=== PATIENT | male | born 1945 | race Hispanic/Latino ===

== ENCOUNTER 2016-10-31 07:39 | Day surgery (SDC) | payer MEDICARE ==
[2016-10-24 08:17] VITALS: BMI 30.8
[2016-10-31] MEDS ORDERED: Propofol 10 mg/ml Inj (20 ML) ONE (10:23)
[2016-10-31] MEDS ORDERED: Lactated Ringer's 1,000 ML IV SCH (10:52)
[2016-10-31 11:07] VITALS: RESP 16
[2016-10-31 12:27] VITALS: BP 129/73; PULSE 62; TEMP 97.9; O2SAT 100
== END 2016-10-31 12:24 | disposition home or self-care (01) ==
LOC: ENDO 07:39
PROVIDERS: ATTEND Specialist
DX: Z12.11 Encounter for screening for malignant neoplasm of colon (principal); D12.2 Benign neoplasm of ascending colon; D12.3 Benign neoplasm of transverse colon; K57.30 Diverticulosis of large intestine without perforation or abscess without bleeding; K64.8 Other hemorrhoids
CPT/HCPCS: 45380; 45385; 88305; J2704; J7040; J7120

== ENCOUNTER 2018-11-28 20:48 | Inpatient (IN) | payer MEDICARE ==
[2018-11-28 20:53] VITALS: BMI 32.8
--- NOTE | 2018-11-28 21:14 | ED PDOC ---
Arrival/HPI - General Chief Complaint: Weakness/Neurological Deficit Time Seen by Provider: 11/28/18 20:53 Historian: Patient - History of Present Illness Narrative History of Present Illness (Text): 11/28/18 21:11 A 73 year old male, whose past medical history includes hypertension, hypothyroidism, hyperlipidemia, presents to the emergency department for evaluation of transient tremors which patient states he had earlier this evening after leaving his house while at a venue to see a band. Not associated with any headache, weakness, chest pain, or shortness of breath. Patient denies any drug/alcohol use. No history of chronic alcohol use. He denies fevers, chills, dizziness, dyspnea on exertion, cough, abdominal pain, nausea, vomiting, diarrhea, back pain, neck pain, urinary/bowel changes, or any other complaint. Time/Duration: Prior to Arrival Symptom Onset: Sudden Symptom Course: Unchanged Activities at Onset: Rest, Light Context: Home Past Medical History - Provider Review Nursing Documentation Reviewed: Yes - Tetanus Immunization Tetanus Immunization: Unknown - Cardiac Hx Pacemaker: No - Endocrine/Metabolic Hx Hypothyroidism: Yes - Hematological/Oncological Hx Blood Transfusions: No Hx Blood Transfusion Reaction: No - Musculoskeletal/Rheumatological Hx Musculoskeletal Disorders: Yes - Genitourinary/Gynecological Other/Comment: Enlarged Prostate - Psychiatric Hx Emotional Abuse: No Hx Physical Abuse: No Hx Substance Use: No - Past Surgical History Past Surgical History: No Previous - Anesthesia Hx Anesthesia Reactions: Yes (SEVERE DRY MOUTH- DIFF VOIDING AT HOME) Hx Malignant Hyperthermia: No - Suicidal Assessment Feels Threatened In Home Enviroment: No Family/Social History - Physician Review Nursing Documentation Reviewed: Yes Family/Social History: No Known Family HX Smoking Status: Current Some Days Smoker Hx Alcohol Use: Yes (SOCIAL) Hx Substance Use: No Hx Substance Use Treatment: No Allergies/Home Meds Allergies/Adverse Reactions: Allergies No Known Allergies Allergy (Verified 11/28/18 20:52) Home Medications: Home Meds Medication Instructions Recorded Confirmed Simvastatin 40 mg PO QPM 12/16/13 11/28/18 Saw [facility] Xt/Phytosterol #2 160 mg PO QAM 03/15/14 11/28/18 [Prostate Sr Softgel] Cholecalciferol [Vitamin D] 2,000 iu PO QAM 10/24/16 11/28/18 Levothyroxine Sodium [Unithroid] 1 mcg PO QAM 10/24/16 11/28/18 Lisinopril [Zestril] 1 tab PO DAILY 10/31/16 11/28/18 Review of Systems - Physician Review All systems were reviewed & negative as marked: Yes - Review of Systems Constitutional: absent: Fevers Respiratory: absent: SOB, Cough Cardiovascular: absent: Chest Pain, WARNER Gastrointestinal: absent: Abdominal Pain, Stool Changes, Diarrhea, Nausea, Vomiting Genitourinary Male: absent: Urinary Output Changes Musculoskeletal: absent: Back Pain, Neck Pain Neurological: Other (Transient tremors). absent: Headache, Dizziness Physical Exam Vital Signs Reviewed: Yes Temperature: Febrile Blood Pressure: Normal Pulse: Tachycardic Respiratory Rate: Normal Appearance: Positive for: Well-Appearing, Non-Toxic, Comfortable Pain Distress: None Mental Status: Positive for: Alert and Oriented X 3 - Systems Exam Head: Present: Atraumatic, Normocephalic Pupils: Present: PERRL Extroacular Muscles: Present: EOMI Conjunctiva: Present: Normal Ears: Present: NORMAL TM Mouth: Present: Moist Mucous Membranes Pharnyx: Present: Normal Neck: Present: Normal Range of Motion. No: Meningeal Signs Respiratory/Chest: Present: Clear to Auscultation, Good Air Exchange. No: Respiratory Distress, Accessory Muscle Use Cardiovascular: Present: Regular Rate and Rhythm, Normal S1, S2. No: Murmurs Abdomen: No: Tenderness, Distention, Peritoneal Signs Back: Present: Normal Inspection Upper Extremity: Present: Normal Inspection. No: Cyanosis, Edema Lower Extremity: Present: Normal Inspection. No: Edema Neurological: Present: GCS=15, CN II-XII Intact, Speech Normal, Motor Func Grossly Intact, Normal Sensory Function Skin: Present: Warm, Dry, Normal Color, Other (small scab to left lateral buttock area/no erythema). No: Rashes Psychiatric: Present: Alert, Oriented x 3, Normal Insight, Normal Concentration Medical Decision Making ED Course and Treatment: 11/28/18 21:14 Impression: A 73 year old male presents to the emergency department with a complaint of transient tremors this evening. Plan: -- Head CT -- EKG -- Labs -- Reassess and disposition Prior Visits: Notes and results from previous visits were reviewed. Progress Notes: 11/28/18 22:18: Code sepsis called. 11/28/18 22:58: Chest X-ray read and interpreted by me shows no acute process. 11/28/18 22:59: EKG read and interpreted by me shows sinus tachycardia at [address]- T changes. 11/28/18 23:52: Case discussed in detail with Dr. Schwarz who accepts patient to her service. EXAM: CT Head Without IV contrast. IMPRESSION: 1. No acute intracranial abnormality. 2. Mild age-appropriate cerebral and cerebellar atrophy. 3. Mild chronic microvascular disease. 4. Mucous retention cysts or polyps seen in the maxillary sinuses bilaterally. Electronically signed on November 28, 2018 11:52:48 PM EDT by: Myke Villagran M.D., M.B.A., Certified By [employer] Trained MRI and CT Specialist - Lab Interpretations I have reviewed the lab results: Yes - RAD Interpretation Radiology Orders: 11/28/18 21:06 HEAD W/O CONTRAST [CT] Stat - EKG Interpretation Interpreted by ED Physician: Yes Type: 12 lead EKG - Scribe Statement The provider has reviewed the documentation as recorded by the Scribe Priscilla Granda Provider Scribe Attestation: All medical record entries made by the Scribe were at my direction and personally dictated by me. I have reviewed the chart and agree that the record accurately reflects my personal performance of the history, physical exam, medical decision making, and the department course for this patient. I have also personally directed, reviewed, and agree with the discharge instructions and disposition. Disposition/Present on Arrival - Present on Arrival Any Indicators Present on Arrival: No History of DVT/PE: No History of Uncontrolled Diabetes: No Urinary Catheter: No History of Decub. Ulcer: No History Surgical Site Infection Following: None - Disposition Have Diagnosis and Disposition been Completed?: Yes Diagnosis: Sepsis Disposition: HOSPITALIZED Disposition Time: 01:05 Patient Problems: Current Active Problems Problem Status Onset Sepsis Acute Condition: STABLE
[2018-11-28 21:29] LABS: HEMOGLOBIN 13.1 g/dL (14.0-18.0); MEAN CORPUSCULAR HEMOGLOBIN 30.8 pg (25.0-35.0); MEAN CORPUSCULAR HGB CONC 33.4 g/dl (31.0-37.0); MEAN PLATELET VOLUME 10.3 fl (7.0-11.0); RBC 4.26 10^6/uL (3.5-6.1); RED CELL DISTRIBUTION WIDTH 13.4 % (11.5-14.5); WHITE BLOOD COUNT 2.8 10^3/uL (4.5-11.0)
[2018-11-28 21:40] LABS: ALB/GLOB RATIO 1.2 (1.1-1.8); ALT/SGPT 18 U/L (7-56); AST/SGOT 21 U/L (17-59); BLOOD UREA NITROGEN 23 mg/dL (7-21); CALCIUM 9.3 mg/dL (8.4-10.5); GFR NON-AFRICAN AMERICAN > 60
[2018-11-28 21:50] LABS: TROPONIN I < 0.01 ng/mL
[2018-11-28 22:00] LABS: FREE T4 1.85 ng/dL (0.78-2.19)
[2018-11-28 22:13] LABS: VENOUS BLOOD GAS BASE EXCESS 1.5 mmol/L (0.0-2.0); VENOUS BLOOD GAS PO2 26 mm/Hg (30-55)
[2018-11-28 22:57] LABS: URINE BILIRUBIN NEGATIVE (NEGATIVE); URINE BLOOD LARGE (NEGATIVE); URINE GLUCOSE (UA) NEGATIVE (NEGATIVE); URINE LEUKOCYTE ESTERASE MODERATE Leu/uL (NEGATIVE); URINE PROTEIN 30 mg/dL (<30 mg/dL); URINE UROBILINOGEN 0.2 E.U./dL (<1 E.U./dL)
[2018-11-28 22:59] LABS: URINE APPEARANCE SLIGHT-CLOUDY (CLEAR); URINE COLOR YELLOW (YELLOW)
[2018-11-28 23:01] LABS: URINE RBC 15 - 20 /hpf (0-2)
[2018-11-28] MEDS ORDERED: Piperacillin/Tazobact 3.375 gm 100 ML IV STA (23:03)
[2018-11-28] MEDS ORDERED: Vancomycin 1gm in NS 250ml 1 GM/250 ML BAG IVPB STA (23:15)
[2018-11-29 00:05] LABS: INR 1.07; PARTIAL THROMBOPLASTIN TIME 28.2 Seconds (26.9-38.3); PROTHROMBIN TIME 11.9 SECONDS (9.4-12.5)
[2018-11-29] MEDS ORDERED: Sodium Chloride 0.9% 1,000 ML IV STA (01:07)
[2018-11-29 01:35] LABS: VENOUS BLOOD GAS BASE EXCESS -2.1 mmol/L (0.0-2.0); VENOUS BLOOD GAS PO2 65 mm/Hg (30-55); VENOUS BLOOD PH 7.46 (7.32-7.43)
--- NOTE | 2018-11-29 02:22 | PCM.SEPTIC ---
<Efrain Conteh - Last Filed: 11/29/18 02:21> Sepsis Progress Note - Reassessment Type Date of Evaluation: 11/29/18 Time of Evaluation: 01:30 Reassessment Type: Non-invasive reassessment - Non Invasive Reassessment Were the most recent vital sign reviewed: Yes Vital Sign (Latest): Temp Pulse Resp BP Pulse Ox 98.4 F 98 H 13 114/68 98 11/29/18 01:51 11/29/18 01:51 11/29/18 01:51 11/29/18 01:51 11/29/18 01:51 Cardiovascular: Yes: Tachycardia Respiratory: Yes: Normal Breath Sounds. No: Accessory Muscle Use, Crackles, Rales, Rhonchi, Respiratory Distress Capillary Refill: Normal (Less than 2 sec) Pulses: Normal Radial, Normal Dorsalis Pedis, Normal Posterior Tibialis Skin: Warm, Dry <Steve Alaniz - Last Filed: 11/29/18 04:35> Sepsis Progress Note - Non Invasive Reassessment Vital Sign (Latest): Temp Pulse Resp BP Pulse Ox 98.4 F 98 H 13 114/68 98 11/29/18 03:22 11/29/18 03:22 11/29/18 03:22 11/29/18 03:22 11/29/18 03:22 Attending/Attestation - Attestation I have personally seen and examined this patient.: Yes I have fully participated in the care of the patient.: Yes I have reviewed all pertinent clinical information, including history, physical exam and plan: Yes Notes (Text): 11/29/18 04:34 Patient was seen when he came to [facility]. Ambulating. Not in acute distress. Agree with biomedical photographer's note.
[2018-11-29] MEDS: Levothyroxine 75 MCG TAB PO SCH (09:39)
[2018-11-29] MEDS: Cholecalciferol 1,000 INTLU TAB PO SCH (09:40)
[2018-11-29] MEDS: PROSTAT PO SCH (09:41)
--- NOTE | 2018-11-29 11:28 | RAD ---
Date of service: 11/28/2018 HISTORY: Sepsis Patient COMPARISON: No prior. TECHNIQUE: 1 view obtained. FINDINGS: LUNGS: No active pulmonary disease. PLEURA: No significant pleural effusion identified, no pneumothorax apparent. CARDIOVASCULAR: Aortic atherosclerotic calcifications. Cardiomediastinal silhouette enlarged. OSSEOUS STRUCTURES: Spinal degenerative changes. VISUALIZED UPPER ABDOMEN: Normal. OTHER FINDINGS: None. IMPRESSION: No active disease.
--- NOTE | 2018-11-29 11:52 | CARD ---
APPROVED REPORT Date of service: 11/28/2018 EKG Measurement Heart [id number] <Conclusion> Poor data quality, interpretation may be adversely affected Sinus tachycardia Otherwise normal ECG
--- NOTE | 2018-11-29 12:40 | CT ---
Date of service: 11/28/2018 PROCEDURE: CT HEAD WITHOUT CONTRAST. HISTORY: tremors COMPARISON: None available. TECHNIQUE: Axial computed tomography images were obtained through the head/brain without intravenous contrast. Radiation dose: Total exam DLP = 1062.97 mGy-cm. This CT exam was performed using one or more of the following dose reduction techniques: Automated exposure control, adjustment of the mA and/or kV according to patient size, and/or use of iterative reconstruction technique. FINDINGS: HEMORRHAGE: No intracranial hemorrhage. BRAIN: No mass effect or edema. Atrophy. Chronic microvascular ischemic changes. VENTRICLES: Unremarkable. No hydrocephalus. CALVARIUM: Unremarkable. PARANASAL SINUSES: Large polyp or retention cyst in the right maxillary sinus. MASTOID AIR CELLS: Unremarkable as visualized. No inflammatory changes. OTHER FINDINGS: None. IMPRESSION: No acute intracranial pathology. Age-related changes.
[2018-11-29] MEDS ORDERED: cefTRIAXone 1 gm 1 GM/100 ML BAG IVPB SCH (14:00)
[2018-11-29] MEDS: Sodium Chloride 0.9% 1,000 ML IV SCH (17:33)
[2018-11-29] MEDS: Cefepime 1gm in NS 100ml 1 GM/100 ML BAG IVPB SCH (22:02)
[2018-11-29] MEDS ORDERED: DiphenhydrAMINE 50 mg/ml Inj IVP STA (22:42)
--- NOTE | 2018-11-30 02:46 | CP.PCM.CON ---
History of Present Illness - History of Present Illness History of Present Illness: Infectious Disease Consultation: November 29, 2018 73 yo male with PMHx of hypertension, hypothyroidism, hyperlipidemia, presents to the emergency department for evaluation of transient tremors which patient states he had earlier this evening after leaving his house while at a venue to see a band. Found to have fevers up to 104.0 F on this hospitalization. The patient with leukopenia. Procalcitonin of 77. Blood cultures with gram negative rods. The patient is ambulatory. Cannot rule out UTI given urin alysis. Urine cultures are pending. PMHx: Hypertension, Hypothyroidism, hyperlipidemia PSHx: None given Allergies: NKDA Social Hx: No illicit drug use Social EtOH Current smoker Active Medications Acetaminophen (Tylenol 325mg Tab) 650 mg PO Q4H PRN PRN Reason: Fever >100.4 F Last Admin: 11/29/18 21:00 Dose: 650 mg Aspirin (Aspirin Chewable) 81 mg PO DAILY [facility] Last Admin: 11/29/18 13:17 Dose: 81 mg Atorvastatin Calcium (Lipitor) 20 mg PO DIN [facility] Last Admin: 11/29/18 17:33 Dose: 20 mg Cholecalciferol (Vitamin D) 2,000 intlu PO DAILY [facility] Last Admin: 11/29/18 09:40 Dose: 2,000 intlu Home Med (Home Med) 1 unit PO DAILY [facility] Last Admin: 11/29/18 09:41 Dose: Not Given Sodium Chloride (Sodium Chloride 0.9%) 1,000 mls @ 100 mls/hr IV .Q10H [facility] Last Admin: 11/29/18 17:33 Dose: 100 mls/hr Cefepime HCl (Maxipime 1gm) 1 gm in 100 mls @ 100 mls/hr IVPB Q12 [facility]; Protocol Last Admin: 11/29/18 22:02 Dose: 100 mls/hr Levothyroxine Sodium (Synthroid) 75 mcg PO 0600 [facility] Last Admin: 11/29/18 09:39 Dose: 75 mcg Lisinopril (Zestril) 5 mg PO DAILY [facility] Last Admin: 11/29/18 09:40 Dose: 5 mg Family Hx: none given ROS: Fevers, chills, tremor, tachycardia No chest pain, abdominal pain, melena, hematuria, hematemesis, hematochezia, depression, anxiety, loss of consciousness, vision loss, hearing loss. Past Patient History - Tetanus Immunizations Tetanus Immunization: Unknown - Past Social History Smoking Status: Current Some Days Smoker - CARDIAC Hx Pacemaker: No - PULMONARY Hx Respiratory Disorders: No - NEUROLOGICAL Hx Neurological Disorder: No - HEENT Hx HEENT Problems: No - RENAL Hx Chronic Kidney Disease: No - ENDOCRINE/METABOLIC Hx Hypothyroidism: Yes - HEMATOLOGICAL/ONCOLOGICAL Hx Blood Transfusions: No Hx Blood Transfusion Reaction: No - INTEGUMENTARY Hx Dermatological Problems: No - MUSCULOSKELETAL/RHEUMATOLOGICAL Hx Musculoskeletal Disorders: Yes - GASTROINTESTINAL Hx Gastrointestinal Disorders: No - GENITOURINARY/GYNECOLOGICAL Other/Comment: Enlarged Prostate - PSYCHIATRIC Hx Emotional Abuse: No Hx Physical Abuse: No Hx Substance Use: No - SURGICAL HISTORY Hx Surgeries: Yes - ANESTHESIA Hx Anesthesia Reactions: Yes (SEVERE DRY MOUTH- DIFF VOIDING AT HOME) Hx Malignant Hyperthermia: No Meds Allergies/Adverse Reactions: Allergies Allergy/AdvReac Type Severity Reaction Status Date / Time No Known Allergies Allergy Verified 11/28/18 20:52 - Medications Medications: Current Medications Acetaminophen (Tylenol 325mg Tab) 650 mg PO Q4H PRN PRN Reason: Fever >100.4 F Last Admin: 11/29/18 21:00 Dose: 650 mg Aspirin (Aspirin Chewable) 81 mg PO DAILY [facility] Last Admin: 11/29/18 13:17 Dose: 81 mg Atorvastatin Calcium (Lipitor) 20 mg PO DIN [facility] Last Admin: 11/29/18 17:33 Dose: 20 mg Cholecalciferol (Vitamin D) 2,000 intlu PO DAILY [facility] Last Admin: 11/29/18 09:40 Dose: 2,000 intlu Home Med (Home Med) 1 unit PO DAILY [facility] Last Admin: 11/29/18 09:41 Dose: Not Given Sodium Chloride (Sodium Chloride 0.9%) 1,000 mls @ 100 mls/hr IV .Q10H [facility] Last Admin: 11/29/18 17:33 Dose: 100 mls/hr Cefepime HCl (Maxipime 1gm) 1 gm in 100 mls @ 100 mls/hr IVPB Q12 [facility]; Protocol Last Admin: 11/29/18 22:02 Dose: 100 mls/hr Levothyroxine Sodium (Synthroid) 75 mcg PO 0600 [facility] Last Admin: 11/29/18 09:39 Dose: 75 mcg Lisinopril (Zestril) 5 mg PO DAILY [facility] Last Admin: 11/29/18 09:40 Dose: 5 mg Physical Exam - Constitutional Appears: Non-toxic, No Acute Distress, Chronically Ill - Head Exam Head Exam: ATRAUMATIC, NORMOCEPHALIC - Eye Exam Eye Exam: EOMI, PERRL Pupil Exam: NORMAL ACCOMODATION, PERRL - ENT Exam ENT Exam: Mucous Membranes Moist, Normal External Ear Exam, TM's Normal Bilatera lly - Neck Exam Neck exam: Positive for: Full Rom, Normal Inspection - Respiratory Exam Respiratory Exam: Clear to Auscultation Bilateral, NORMAL BREATHING PATTERN. absent: Rales, Rhonchi, Wheezes - Cardiovascular Exam Cardiovascular Exam: Tachycardia, +S1, +S2 - GI/Abdominal Exam GI & Abdominal Exam: Normal Bowel Sounds, Soft. absent: Distended, Tenderness - Extremities Exam Extremities exam: Positive for: full ROM, normal inspection - Neurological Exam Neurological exam: Alert, CN II-XII Intact, Oriented x3 - Psychiatric Exam Psychiatric exam: Normal Affect, Normal Mood - Skin Skin Exam: Intact, Normal Color Results - Vital Signs Recent Vital Signs: Last Vital Signs Temp 100.8 F H 11/29/18 23:16 Pulse 69 11/30/18 01:58 Resp 18 11/29/18 23:16 BP 96/61 L 11/29/18 23:16 Pulse Ox 96 11/29/18 23:16 - Labs Result Diagrams: 11/28/18 21:22 11/28/18 21:22 Labs: Laboratory Results - last 24 hr 11/29/18 11/29/18 11/29/18 12:00 12:00 12:00 25-OH Vitamin D Total 43.1 Procalcitonin 77.63 H Thyroxine (T4) 5.8 Assessment & Plan - Assessment and Plan (Free Text) Assessment: 73 yo male with fevers up to 104 F presenting with tachycardia and tremors. The patient with blood cultures with gram negative rods. Urinalysis strongly suggestive of UTI. On Rocephin. Switched to Cefepime and one dose of Gentamicin given. Patient with septicemia, bacteria, and likely UTI. The patient has a severely elevated procalcitonin of 77. Gram negative sepsis. May need additional doses of Aminoglycosides. Monitor procalcitonin. Supportive care. Thank you for allowing me to participate in the care of the patient, we will follow with you.
--- NOTE | 2018-11-30 04:24 | CP.PCM.PN ---
Subjective - Date & Time of Evaluation Date of Evaluation: 11/30/18 Time of Evaluation: 04:23 - Subjective Subjective: S:It was requested to co-sign order for Benadryl which was prescribed for sleep. Patient is asleep now. Pertinent medical record was reviewed. O:VSS. Not in acute distress. LUNGS:Normal breathing pattern. A:Insomnia. P:Benadryl 25 mg PO x 1. Objective - Vital Signs/Intake and Output Vital Signs (last 24 hours): Temp Pulse Resp BP Pulse Ox 100.8 F H 69 18 96/61 L 96 11/29/18 23:16 11/30/18 01:58 11/29/18 23:16 11/29/18 23:16 11/29/18 23:16 Intake and Output: 11/29/18 11/30/18 18:59 06:59 Intake Total 1080 807 Balance 1080 807 - Medications Medications: Current Medications Acetaminophen (Tylenol 325mg Tab) 650 mg PO Q4H PRN PRN Reason: Fever >100.4 F Last Admin: 11/29/18 21:00 Dose: 650 mg Aspirin (Aspirin Chewable) 81 mg PO DAILY [facility] Last Admin: 11/29/18 13:17 Dose: 81 mg Atorvastatin Calcium (Lipitor) 20 mg PO DIN [facility] Last Admin: 11/29/18 17:33 Dose: 20 mg Cholecalciferol (Vitamin D) 2,000 intlu PO DAILY [facility] Last Admin: 11/29/18 09:40 Dose: 2,000 intlu Home Med (Home Med) 1 unit PO DAILY [facility] Last Admin: 11/29/18 09:41 Dose: Not Given Sodium Chloride (Sodium Chloride 0.9%) 1,000 mls @ 100 mls/hr IV .Q10H [facility] Last Admin: 11/29/18 17:33 Dose: 100 mls/hr Cefepime HCl (Maxipime 1gm) 1 gm in 100 mls @ 100 mls/hr IVPB Q12 [facility]; Protocol Last Admin: 11/29/18 22:02 Dose: 100 mls/hr Levothyroxine Sodium (Synthroid) 75 mcg PO 0600 [facility] Last Admin: 11/29/18 09:39 Dose: 75 mcg Lisinopril (Zestril) 5 mg PO DAILY [facility] Last Admin: 11/29/18 09:40 Dose: 5 mg - Labs Labs: 11/28/18 21:22 11/28/18 21:22 PT 11.9 SECONDS (9.4-12.5) 11/28/18 22:15 INR 1.07 11/28/18 22:15 APTT 28.2 Seconds (26.9-38.3) 11/28/18 22:15
[2018-11-30] MEDS: Sodium Chloride 0.9% 1,000 ML IV SCH ×3 (04:55→21:10)
[2018-11-30] MEDS: Levothyroxine 75 MCG TAB PO SCH (04:59)
[2018-11-30 07:40] LABS: HEMOGLOBIN 11.4 g/dL (14.0-18.0); MEAN CELL VOLUME 91.4 fl (80.0-105.0); MEAN CORPUSCULAR HEMOGLOBIN 30.6 pg (25.0-35.0); MEAN CORPUSCULAR HGB CONC 33.5 g/dl (31.0-37.0); MEAN PLATELET VOLUME 10.8 fl (7.0-11.0); RBC 3.72 10^6/uL (3.5-6.1); RED CELL DISTRIBUTION WIDTH 13.4 % (11.5-14.5); WHITE BLOOD COUNT 5.6 10^3/uL (4.5-11.0)
[2018-11-30] MEDS: PROSTAT PO SCH (09:17)
[2018-11-30] MEDS: Cefepime 1gm in NS 100ml 1 GM/100 ML BAG IVPB SCH ×2 (09:20→21:11)
[2018-11-30] MEDS: Cholecalciferol 1,000 INTLU TAB PO SCH (09:20)
[2018-11-30] MEDS ORDERED: Simethicone 80 mg Chewtab PO ONE (10:26)
--- NOTE | 2018-11-30 15:34 | CP.PCM.PN ---
Subjective - Date & Time of Evaluation Date of Evaluation: 11/30/18 Time of Evaluation: 14:15 - Subjective Subjective: Infectious Disease Follow Up: November 30, 2018 73 yo male with PMHx of hypertension, hypothyroidism, hyperlipidemia, presents to the emergency department for evaluation of transient tremors which patient states he had earlier this evening after leaving his house while at a venue to see a band. Found to have fevers up to 104.0 F on this hospitalization. The patient with leukopenia. Procalcitonin of 77. Blood cultures with gram negative rods. The patient is ambulatory. Cannot rule out UTI given urinalys is. Urine cultures are pending. Both blood and urine are showing gram negative rods. Objective - Vital Signs/Intake and Output Vital Signs (last 24 hours): Temp Pulse Resp BP Pulse Ox 97.9 F 74 18 114/69 97 11/30/18 12:00 11/30/18 14:00 11/30/18 12:00 11/30/18 12:00 11/30/18 05:27 Intake and Output: 11/30/18 11/30/18 06:59 18:59 Intake Total 2247 Balance 2247 - Medications Medications: Current Medications Acetaminophen (Tylenol 325mg Tab) 650 mg PO Q4H PRN PRN Reason: Fever >100.4 F Last Admin: 11/30/18 04:56 Dose: 650 mg Aspirin (Aspirin Chewable) 81 mg PO DAILY [facility] Last Admin: 11/30/18 09:20 Dose: 81 mg Atorvastatin Calcium (Lipitor) 20 mg PO DIN [facility] Last Admin: 11/29/18 17:33 Dose: 20 mg Cholecalciferol (Vitamin D) 2,000 intlu PO DAILY [facility] Last Admin: 11/30/18 09:20 Dose: 2,000 intlu Home Med (Home Med) 1 unit PO DAILY [facility] Last Admin: 11/30/18 09:17 Dose: Not Given Cefepime HCl (Maxipime 1gm) 1 gm in 100 mls @ 100 mls/hr IVPB Q12 [facility]; Protocol Last Admin: 11/30/18 09:20 Dose: 100 mls/hr Sodium Chloride (Sodium Chloride 0.9%) 1,000 mls @ 150 mls/hr IV .Q6H40M [facility] Last Admin: 11/30/18 13:21 Dose: 150 mls/hr Levothyroxine Sodium (Synthroid) 75 mcg PO 0600 [facility] Last Admin: 11/30/18 04:59 Dose: 75 mcg Lisinopril (Zestril) 5 mg PO DAILY [facility] Last Admin: 11/30/18 09:17 Dose: Not Given - Labs Labs: 11/30/18 06:30 11/28/18 21:22 PT 11.9 SECONDS (9.4-12.5) 11/28/18 22:15 INR 1.07 11/28/18 22:15 APTT 28.2 Seconds (26.9-38.3) 11/28/18 22:15 - Constitutional Appears: Non-toxic, No Acute Distress - Head Exam Head Exam: ATRAUMATIC, NORMOCEPHALIC - Eye Exam Eye Exam: EOMI, PERRL Pupil Exam: NORMAL ACCOMODATION, PERRL - ENT Exam ENT Exam: Mucous Membranes Moist, Normal External Ear Exam, TM's Normal Bilaterally - Neck Exam Neck Exam: Full ROM, Normal Inspection - Respiratory Exam Respiratory Exam: Clear to Ausculation Bilateral, NORMAL BREATHING PATTERN. absent: Rales, Rhonchi, Wheezes - Cardiovascular Exam Cardiovascular Exam: REGULAR RHYTHM, RRR, +S1, +S2 - GI/Abdominal Exam GI & Abdominal Exam: Soft, Normal Bowel Sounds. absent: Distended, Tenderness - Extremities Exam Extremities Exam: Full ROM, Normal Inspection - Neurological Exam Neurological Exam: Alert, Awake, CN II-XII Intact, Oriented x3 - Psychiatric Exam Psychiatric exam: Normal Affect, Normal Mood - Skin Skin Exam: Intact, Normal Color Assessment and Plan - Assessment and Plan (Free Text) Assessment: 73 yo male with fevers up to 104 F presenting with tachycardia and tremors. The patient with blood cultures with gram negative rods. Urinalysis strongly suggestive of UTI. On Rocephin. Switched to Cefepime and one dose of Gentamicin given. Patient with septicemia, bacteremia, and UTI. The patient has a severely elevated procalcitonin of 77. Gram negative sepsis. May need additional doses of Aminoglycosides. Monitor procalcitonin. Septicemia and Bacteremia likely originating from gram negative tani UTI. Both blood and urine cultures with gram negative rods. Fevers downtrending to 100.8 F as of this morning. May give another dose of Gentamicin for treatment. Cultures identification and sensitivities pending. Supportive care. Thank you for allowing me to participate in the care of the patient, we will follow with you.
[2018-11-30] MEDS ORDERED: Gentamicin 80 mg/2mL Inj. IVPB SCH (15:45)
[2018-12-01] MEDS: Sodium Chloride 0.9% 1,000 ML IV SCH ×5 (04:04→21:21)
[2018-12-01] MEDS: Levothyroxine 75 MCG TAB PO SCH (05:34)
[2018-12-01] MEDS: Cefepime 1gm in NS 100ml 1 GM/100 ML BAG IVPB SCH ×2 (09:34→21:14)
[2018-12-01] MEDS: Cholecalciferol 1,000 INTLU TAB PO SCH (09:36)
[2018-12-01] MEDS: PROSTAT PO SCH (10:52)
--- NOTE | 2018-12-01 14:58 | CP.PCM.PN ---
Subjective - Date & Time of Evaluation Date of Evaluation: 12/01/18 Time of Evaluation: 13:00 - Subjective Subjective: Infectious Disease Follow Up: December 01, 2018 73 yo male with PMHx of hypertension, hypothyroidism, hyperlipidemia, presents to the emergency department for evaluation of transient tremors which patient states he had earlier this evening after leaving his house while at a venue to see a band. Found to have fevers up to 104.0 F on this hospitalization. The patient with leukopenia. Procalcitonin of 77. Blood cultures with gram negative rods. The patient is ambulatory. Cannot rule out UTI given urinalys is. Urine cultures are pending. Both blood and urine are showing gram negative rods. E. coli growing from cultures. Objective - Vital Signs/Intake and Output Vital Signs (last 24 hours): Temp Pulse Resp BP Pulse Ox 97.8 F 67 18 150/74 98 12/01/18 11:38 12/01/18 11:38 12/01/18 11:38 12/01/18 11:38 12/01/18 05:45 Intake and Output: 12/01/18 12/01/18 06:59 18:59 Intake Total 3306 Balance 3306 - Medications Medications: Current Medications Acetaminophen (Tylenol 325mg Tab) 650 mg PO Q4H PRN PRN Reason: Fever >100.4 F Last Admin: 12/01/18 04:04 Dose: 650 mg Aspirin (Aspirin Chewable) 81 mg PO DAILY [facility] Last Admin: 12/01/18 09:37 Dose: 81 mg Atorvastatin Calcium (Lipitor) 20 mg PO DIN [facility] Last Admin: 11/30/18 17:10 Dose: 20 mg Cholecalciferol (Vitamin D) 2,000 intlu PO DAILY [facility] Last Admin: 12/01/18 09:36 Dose: 2,000 intlu Home Med (Home Med) 1 unit PO DAILY [facility] Last Admin: 12/01/18 10:52 Dose: Not Given Cefepime HCl (Maxipime 1gm) 1 gm in 100 mls @ 100 mls/hr IVPB Q12 [facility]; Protocol Last Admin: 12/01/18 09:34 Dose: 100 mls/hr Sodium Chloride (Sodium Chloride 0.9%) 1,000 mls @ 150 mls/hr IV .[id number] [facility] Last Admin: 12/01/18 04:04 Dose: 150 mls/hr Levothyroxine Sodium (Synthroid) 75 mcg PO 0600 [facility] Last Admin: 12/01/18 05:34 Dose: 75 mcg Lisinopril (Zestril) 5 mg PO DAILY [facility] Last Admin: 12/01/18 09:35 Dose: 5 mg - Labs Labs: 11/30/18 06:30 11/28/18 21:22 PT 11.9 SECONDS (9.4-12.5) 11/28/18 22:15 INR 1.07 11/28/18 22:15 APTT 28.2 Seconds (26.9-38.3) 11/28/18 22:15 - Constitutional Appears: Non-toxic, No Acute Distress - Head Exam Head Exam: ATRAUMATIC, NORMOCEPHALIC - Eye Exam Eye Exam: EOMI, PERRL Pupil Exam: NORMAL ACCOMODATION, PERRL - ENT Exam ENT Exam: Mucous Membranes Moist, Normal External Ear Exam, TM's Normal Bilaterally - Neck Exam Neck Exam: Full ROM, Normal Inspection - Respiratory Exam Respiratory Exam: Clear to Ausculation Bilateral, NORMAL BREATHING PATTERN. absent: Rales, Rhonchi, Wheezes - Cardiovascular Exam Cardiovascular Exam: REGULAR RHYTHM, RRR, +S1, +S2 - GI/Abdominal Exam GI & Abdominal Exam: Soft, Normal Bowel Sounds. absent: Distended, Tenderness - Extremities Exam Extremities Exam: Full ROM, Normal Inspection - Neurological Exam Neurological Exam: Alert, Awake, CN II-XII Intact, Oriented x3 - Psychiatric Exam Psychiatric exam: Normal Affect, Normal Mood - Skin Skin Exam: Intact, Normal Color Assessment and Plan - Assessment and Plan (Free Text) Assessment: 73 yo male with fevers up to 104 F presenting with tachycardia and tremors. The patient with blood cultures with gram negative rods. Urinalysis strongly suggestive of UTI. On Rocephin. Switched to Cefepime and one dose of Gentamicin given. Patient with septicemia, bacteremia, and UTI. The patient has a severely elevated procalcitonin of 77. Gram negative sepsis. May need additional doses of Aminoglycosides. Monitor procalcitonin. Septicemia and Bacteremia likely originating from gram negative tani UTI. Both blood and urine cultures with gram negative rods. Fevers downtrending to 100.8 F as of yesterday morning. Given 4 total doses of Gentamicin for treatment. Cultures identification and sensitivities pending. Afebrile the past 24 hours. E. coli growth in blood and urine. PCN sensitive and Fluoroquinolones. Can consider use of oral Keflex 500 mg TID for treatment of 10 days more. Supportive care. Thank you for allowing me to participate in the care of the patient, we will follow with you.
[2018-12-01] MEDS ORDERED: MELATONIN 5 MG PO PRN (22:00)
[2018-12-02] MEDS: DiphenhydrAMINE 50 mg/ml Inj IVP STA ×2 (00:25→00:35)
[2018-12-02] MEDS: Levothyroxine 75 MCG TAB PO SCH (05:55)
[2018-12-02 06:15] VITALS: O2SAT 97
--- NOTE | 2018-12-02 08:05 | PN ---
DATE: 11/30/2018 SUBJECTIVE: This 73-year-old male was examined on the cardiac villa of the [facility] on the morning of 11/30/2018. This case was reviewed in detail with the patient and nurse, Geetha Diamond, registered nurse. The patient remains febrile. He also has periods of tachycardia related to his fever. The patient is being fluid hydrated and denies any chest pain, shortness of breath, nausea, vomiting, diarrhea or dysuria. Upon admission, the patient was dosed with IV vancomycin and IV Zosyn. The patient has received an additional dose of Rocephin as well as IV gentamicin under the direction of Dr. Rolf Linton from Infectious Disease. The patient is aware that his diagnosis most likely is related to urosepsis and at present, both blood and urine cultures are pending. PHYSICAL EXAMINATION: VITAL SIGNS: The patient in normal sinus to sinus tachycardia, temperature earlier 100.8, respirations 18, pulse 71 and blood pressure 98/56 with pulse ox 97% room air. HEENT: Head: Normocephalic, atraumatic. Eyes: No icterus. NECK: Supple. HEART: S1, S2. LUNGS: No wheezing. ABDOMEN: Soft. No rebound. No guarding. No CVA tenderness. No suprapubic tenderness. EXTREMITIES: No edema. SKIN: No rash. VASCULAR: Legs warm to touch. PSYCHOLOGICAL: Alert and oriented x3. NEUROLOGIC: Intact. LABORATORY DATA: White count 5600, hemoglobin 11.4, hematocrit 34, platelets 114,000. Vitamin D level 43.1. T4 normal 5.8. Microbiology report is showing both blood and urine with a gram-negative tani, sensitivity and identification to follow. IMPRESSION: This is a 73-year-old male with probable early septic shock on the basis of urosepsis and comorbidities of hyperlipidemia, benign prostate hypertrophy, chronic hypertension, hypothyroidism and low levels of vitamin D. PLAN: As discussed with the patient and nurse Geetha Diamond will be to increase IV fluids to 150 mL/hour of 0.9 saline and we will monitor the patient's blood pressure and hold Zestril if need be. He will continue on vitamin D replacement therapy, p.r.n. Tylenol for fever, Synthroid, IV fluids at 150 mL/hour. He continues on Maxipime 1 g IV every 12 hours, Lipitor and baby aspirin, heart healthy diet with instructions for out of bed to chair and bathroom privileges with assistance. The patient expresses that he is anxious for discharge to home and has been advised. We will need to await the results of blood and urine cultures to better determine course of oral antibiotics therapy and decide duration and I have also told the patient it is my desire that he be afebrile for 48 hours prior to any consideration for discharge. Greater than 35 minutes was spent in the care management, review of labs, orders, x-rays and discussion of this patient with himself and nurse Geetha Diamond. All questions were answered. Stephanie Schwarz MD
--- NOTE | 2018-12-02 08:12 | PN ---
DATE: 12/01/2018 SUBJECTIVE: This 73-year-old male was examined on the cardiac villa of the [facility] on 11/11/2018. This case was reviewed in detail with nurse Ziggy Mixon, registered nurse. The patient has been afebrile for the past 24 hours. He remains in a normal sinus rhythm on panel monitor and denied any fever, chills, chest pain, shortness of breath or dysuria. At present, both blood and urine cultures are growing E. coli sensitive to Ancef. Case has been reviewed in detail with Dr. Rolf Linton from Infectious Disease who states that the patient can be switched to oral Keflex and must complete a full 10-day course of Keflex once cleared for discharge. PHYSICAL EXAMINATION: VITAL SIGNS: Temperature was 98.6, respirations 18, pulse 77 and blood pressure 143/85, earlier 114/69, pulse ox is 98% on room air. Physical exam remains unchanged. IMPRESSION: A 73-year-old male with anemia of acute illness, resolved, leukopenia, Escherichia coli urosepsis, history of benign prostate hypertrophy, status post transurethral resection of prostate, hyperlipidemia, hypothyroidism, low levels of vitamin D with therapeutic level now with supplementation and hypertension with previous episode of hypotension in the setting of sepsis, now resolved. PLAN: As discussed with the patient and nurse Mixon, registered nurse, will be to lower IV fluids to 70 mL/hour and the patient will be dosed with Keflex 500 mg p.o. t.i.d. while continuing IV Maxipime to ensure resolution of fever, instability of blood pressure. The patient remains anxious for discharge. I have expressed that he remains afebrile, normotensive and can tolerate his oral antibiotic, he will be readied for discharge to home with instructions to follow up with his urologist, his mysql dba within the next several days after discharge. Also, the patient is aware he will need Keflex 500 mg p.o. t.i.d. for a full 10-day course. He had questions regarding proceeding with dental implants which I had advised that he not proceed with until completion of IV antibiotics and further clearance by his mysql dba, Dr. Oro. Greater than 35 minutes was spent in the care management, review of labs, orders, x-rays and discussion of this patient with himself, nursing and pharmacy. All questions were answered. Of note, procalcitonin level initially 77, decreased to 28.52 on day #2 of admission. Stephanie Schwarz MD
[2018-12-02] MEDS: Cefepime 1gm in NS 100ml 1 GM/100 ML BAG IVPB SCH (09:57)
[2018-12-02] MEDS: Cholecalciferol 1,000 INTLU TAB PO SCH (09:58)
[2018-12-02] MEDS: PROSTAT PO SCH (10:00)
--- NOTE | 2018-12-02 11:07 | CP.PCM.APN ---
Subjective - Date & Time of Evaluation Date of Evaluation: 12/02/18 Time of Evaluation: 09:40 - Subjective Subjective: pt seen and examined at bedside, pt states he feels well and offers no complaints, denies cp or SOB Review of Systems - Review of Systems All systems: reviewed and no additional remarkable complaints except Objective - Vital Signs/Intake and Output Vital Signs (last 24 hours): Temp Pulse Resp BP Pulse Ox 97.8 F 60 19 138/75 97 12/02/18 06:00 12/02/18 10:00 12/02/18 06:00 12/02/18 09:59 12/02/18 06:00 Intake and Output: 12/02/18 12/02/18 06:59 18:59 Intake Total 3300 Output Total 4 Balance 3296 - Medications Medications: Current Medications Acetaminophen (Tylenol 325mg Tab) 650 mg PO Q4H PRN PRN Reason: Fever >100.4 F Last Admin: 12/01/18 21:29 Dose: 650 mg Aspirin (Aspirin Chewable) 81 mg PO DAILY [facility] Last Admin: 12/02/18 09:59 Dose: 81 mg Atorvastatin Calcium (Lipitor) 20 mg PO DIN [facility] Last Admin: 12/01/18 17:55 Dose: 20 mg Cephalexin Monohydrate (Keflex) 500 mg PO TID [facility]; Protocol Last Admin: 12/02/18 09:59 Dose: 500 mg Cholecalciferol (Vitamin D) 2,000 intlu PO DAILY [facility] Last Admin: 12/02/18 09:58 Dose: 2,000 intlu Home Med (Home Med) 1 unit PO DAILY [facility] Last Admin: 12/02/18 10:00 Dose: Not Given Home Med (Home Med) 1 unit PO HS PRN PRN Reason: Insomnia Last Admin: 12/01/18 21:15 Dose: 1 unit Cefepime HCl (Maxipime 1gm) 1 gm in 100 mls @ 100 mls/hr IVPB Q12 [facility]; Protocol Last Admin: 12/02/18 09:57 Dose: 100 mls/hr Sodium Chloride (Sodium Chloride 0.9%) 1,000 mls @ 70 mls/hr IV .[id number] [facility] Last Admin: 12/01/18 21:21 Dose: 70 mls/hr Levothyroxine Sodium (Synthroid) 75 mcg PO 0600 [facility] Last Admin: 12/02/18 05:55 Dose: 75 mcg Lisinopril (Zestril) 5 mg PO DAILY [facility] Last Admin: 12/02/18 09:59 Dose: 5 mg - Labs Labs: 11/30/18 06:30 11/28/18 21:22 PT 11.9 SECONDS (9.4-12.5) 11/28/18 22:15 INR 1.07 11/28/18 22:15 APTT 28.2 Seconds (26.9-38.3) 11/28/18 22:15 - Constitutional Appears: Non-toxic, No Acute Distress - Head Exam Head Exam: ATRAUMATIC - Eye Exam Eye Exam: EOMI Pupil Exam: NORMAL ACCOMODATION - ENT Exam ENT Exam: Normal Exam - Neck Exam Neck Exam: Normal Inspection - Respiratory Exam Respiratory Exam: Clear to Ausculation Bilateral - Cardiovascular Exam Cardiovascular Exam: +S1, +S2 - GI/Abdominal Exam GI & Abdominal Exam: Soft, Normal Bowel Sounds - Extremities Exam Extremities Exam: Normal Capillary Refill - Neurological Exam Neurological Exam: Alert, Awake - Psychiatric Exam Psychiatric exam: Normal Mood - Skin Skin Exam: Dry, Intact Assessment and Plan - Assessment and Plan (Free Text) Plan: ITS Impressions Head CT 11/28/18 21:06 IMPRESSION: No acute intracranial pathology. Age-related changes. Chest X-Ray 11/28/18 21:36 IMPRESSION: No active disease. Microbiology 11/28/18 22:30 Blood Blood Culture - Final Escherichia Coli 11/28/18 22:30 Blood Gram Stain - Final 11/28/18 22:53 Urine Random Urine Culture - Final Escherichia Coli 11/28/18 22:00 Blood Blood Culture - Final Escherichia Coli 11/28/18 22:00 Blood Gram Stain - Final No Known Allergies Allergy (Verified 11/28/18 20:52) A/P 73 yr old male admitted with tremors found to have fever 104, leukopenia admitted for sepsis with ID consultation. Pt was found with procal initially 77 now trending down to 28. Pt workup revealed gram negative sepsis for which pt is now on antibiotic regimen. Dr Royer vitale noted for DC on Keflex x 10 days. PMD notes rev'd will follow up. BPCI/TIC - BPCIA/TIC Educated pt/family on BPCIA/CIR/Med to Bed Programs: Yes Flyers given, including [facility] Beneficiary letter: Yes Pt/family verbalized understanding & agreed to program: Yes
[2018-12-02 12:02] VITALS: BP 130/65; PULSE 58; RESP 18; TEMP 97.7
[2018-12-02] MEDS: Sodium Chloride 0.9% 1,000 ML IV SCH (14:11)
--- NOTE | 2018-12-02 14:40 | CP.PCM.PN ---
Subjective - Date & Time of Evaluation Date of Evaluation: 12/02/18 Time of Evaluation: 14:00 - Subjective Subjective: Infectious Disease Follow Up: December 02, 2018 73 yo male with PMHx of hypertension, hypothyroidism, hyperlipidemia, presents to the emergency department for evaluation of transient tremors which patient states he had earlier this evening after leaving his house while at a venue to see a band. Found to have fevers up to 104.0 F on this hospitalization. The patient with leukopenia. Procalcitonin of 77. Blood cultures with gram negative rods. The patient is ambulatory. Cannot rule out UTI given urinalys is. Urine cultures are pending. Both blood and urine are showing gram negative rods. E. coli growing from cultures. Patient feeling better overall. Objective - Vital Signs/Intake and Output Vital Signs (last 24 hours): Temp Pulse Resp BP Pulse Ox 97.7 F 58 L 18 130/65 97 12/02/18 12:00 12/02/18 12:00 12/02/18 12:00 12/02/18 12:00 12/02/18 06:00 Intake and Output: 12/02/18 12/02/18 06:59 18:59 Intake Total 3300 Output Total 4 Balance 3296 - Medications Medications: Current Medications Acetaminophen (Tylenol 325mg Tab) 650 mg PO Q4H PRN PRN Reason: Fever >100.4 F Last Admin: 12/01/18 21:29 Dose: 650 mg Aspirin (Aspirin Chewable) 81 mg PO DAILY [facility] Last Admin: 12/02/18 09:59 Dose: 81 mg Atorvastatin Calcium (Lipitor) 20 mg PO DIN [facility] Last Admin: 12/01/18 17:55 Dose: 20 mg Cephalexin Monohydrate (Keflex) 500 mg PO TID [facility]; Protocol Last Admin: 12/02/18 14:10 Dose: 500 mg Cholecalciferol (Vitamin D) 2,000 intlu PO DAILY [facility] Last Admin: 12/02/18 09:58 Dose: 2,000 intlu Home Med (Home Med) 1 unit PO DAILY [facility] Last Admin: 12/02/18 10:00 Dose: Not Given Home Med (Home Med) 1 unit PO HS PRN PRN Reason: Insomnia Last Admin: 12/01/18 21:15 Dose: 1 unit Sodium Chloride (Sodium Chloride 0.9%) 1,000 mls @ 70 mls/hr IV .[id number] [facility] Last Admin: 12/02/18 14:11 Dose: 70 mls/hr Levothyroxine Sodium (Synthroid) 75 mcg PO 0600 [facility] Last Admin: 12/02/18 05:55 Dose: 75 mcg Lisinopril (Zestril) 5 mg PO DAILY [facility] Last Admin: 12/02/18 09:59 Dose: 5 mg - Labs Labs: 11/30/18 06:30 11/28/18 21:22 PT 11.9 SECONDS (9.4-12.5) 11/28/18 22:15 INR 1.07 11/28/18 22:15 APTT 28.2 Seconds (26.9-38.3) 11/28/18 22:15 - Constitutional Appears: Non-toxic, No Acute Distress, Chronically Ill - Head Exam Head Exam: ATRAUMATIC, NORMOCEPHALIC - Eye Exam Eye Exam: EOMI, PERRL Pupil Exam: NORMAL ACCOMODATION, PERRL - ENT Exam ENT Exam: Mucous Membranes Moist, Normal External Ear Exam, TM's Normal Bilaterally - Neck Exam Neck Exam: Full ROM, Normal Inspection - Respiratory Exam Respiratory Exam: Clear to Ausculation Bilateral, NORMAL BREATHING PATTERN. absent: Rales, Rhonchi, Wheezes - Cardiovascular Exam Cardiovascular Exam: REGULAR RHYTHM, RRR, +S1, +S2 - GI/Abdominal Exam GI & Abdominal Exam: Soft, Normal Bowel Sounds. absent: Distended, Tenderness - Extremities Exam Extremities Exam: Full ROM, Normal Inspection - Neurological Exam Neurological Exam: Alert, Awake, CN II-XII Intact, Oriented x3 - Psychiatric Exam Psychiatric exam: Normal Affect, Normal Mood - Skin Skin Exam: Intact, Normal Color Assessment and Plan - Assessment and Plan (Free Text) Assessment: 73 yo male with fevers up to 104 F presenting with tachycardia and tremors. The patient with blood cultures with gram negative rods. Urinalysis strongly suggestive of UTI. On Rocephin. Switched to Cefepime and one dose of Gentamicin given. Patient with septicemia, bacteremia, and UTI. The patient has a severely elevated procalcitonin of 77. Gram negative sepsis. May need additional doses of Aminoglycosides. Monitor procalcitonin. Septicemia and Bacteremia likely originating from gram negative tani UTI. Both blood and urine cultures with gram negative rods. Fevers downtrending to 100.8 F as of yesterday morning. Given 4 total doses of Gentamicin for treatment. Cultures identification and sensitivities pending. Afebrile the past 24 hours. E. coli growth in blood and urine. PCN sensitive and Fluoroquinolones. Can consider use of oral Keflex 500 mg TID for treatment of 10 days more for discharge. Supportive care. Thank you for allowing me to participate in the care of the patient, we will follow with you.
--- NOTE | 2018-12-02 14:59 | HP ---
DATE OF EXAM: 11/29/2018 HISTORY OF PRESENT ILLNESS: This 73-year-old male was examined at his bedside on the telemetry unit of the [facility] on the morning of 11/29/2018. This case was reviewed in detail with himself and nurse, Geetha Diamond registered nurse. Case was also reviewed with Dr. Davin Tejada, emergency room physician. Mr. Bowers a 73-year-old male who presented to the [facility] with shaking chills, fever and is admitted for concerns of urosepsis. He states he was on his way to listen to a band at a local bar last Saturday evening when upon arrival to his location, he experienced dizziness, weakness and shaking chills. An ambulance was called. The patient was brought to the [facility] ER where he was evaluated by Dr. Tejada who had concerns that the patient was experiencing orally symptoms of urosepsis. ALLERGIES: HE DENIES ALLERGIES TO MEDICATIONS. OUTPATIENT MEDICATIONS: Included Zocor, saw palmetto, Zestril, Synthroid and vitamin D. PAST MEDICAL HISTORY: Significant for chronic hypertension, hypothyroidism, hyperlipidemia, benign prostatic hypertrophy, status post TURP, hypovitamin D, low-level vitamin D and the patient follows with a PMD and urologist located in the [facility]. His private medical physician is Armond Esposito. He follows with Urology. 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 FAMILY HISTORY: Noncontributory. SOCIAL HISTORY: The patient is a current nondrinker, nonsmoker. He has never been a drug misuser. REVIEW OF SYSTEMS: Constitutional review admitted to shaking chills. Denied any prodrome of fever that he is aware of. HEENT: Head: No headache or seizures. Eyes: No change in visual acuity. Ears: No hearing loss. Throat: No swallowing difficulty. NECK: History of partial thyroidectomy, but he reports was thyroid enlargement. CARDIAC: Chronic hypertension. No chest pain. No palpitation. PULMONARY: No cough. No hemoptysis. GI: No hematemesis, melena, diarrhea. : Denied dysuria. Denied gross hematuria, has history of benign prostatic hypertrophy and TURP. Denies knowledge of renal insufficiency. VASCULAR: No claudication. PSYCHOLOGICAL: No anxiety. No depression. NEUROLOGICAL: No knowledge of stroke. ENDOCRINOLOGICAL: No knowledge of diabetes or hyperlipidemia. SKIN: No rashes. PHYSICAL EXAMINATION GENERAL: Text. VITAL SIGNS: On admission, the patient had a temperature of 103.1, respirations 16, pulse 104, blood pressure initially 133/76. HEENT: Head is normocephalic, atraumatic. Eyes: No icterus. NECK: Supple. HEART: Regular S1, S2. LUNGS: Clear. ABDOMEN: Soft. No rebound. No guarding. No tenderness and tenderness. No CVA tenderness. No suprapubic tenderness. EXTREMITIES: No edema. SKIN: No rash. VASCULAR: Legs warm to touch. PSYCHOLOGICAL: Alert and oriented x3. NEUROLOGIC: grossly intact. LABORATORY DATA: White count 2800, hemoglobin 13.1, hematocrit 39.2, MCV 92.0, platelets 144,000. PT/INR 1.07 and PTT 28.2. Sodium 138, K 4.2, chloride 103, bicarb 23, BUN 23, creatinine 1.1, random blood sugar 108, calcium 9.3, bilirubin 0.8, AST 21, ALT 18, alk phos 78. Troponin less than 0.01. CPK normal 123, albumin 4.0, free T4 normal 1.85. TSH normal 2.66. Urinalysis showed 15 to 20 rbc's. White blood cells, 10 to 15 wbc's, moderate leukocyte esterase. EKG was reviewed. It showed a sinus tachycardia, otherwise normal. Head CT was reviewed. It showed no intracranial pathology. No acute stroke. No evidence of brain edema or hemorrhage. Chest x-ray was reviewed. It showed no active pulmonary disease, no pleural effusion, no pneumothorax, no infiltrate. IMPRESSION: A 73-year-old male with impending sepsis probably on the basis of urinary tract infection with comorbidities of hyperlipidemia, benign prostatic hypertrophy, status post TURP, hypertension, hypothyroidism and low vitamin D levels. PLAN: The plan is to maintain this patient on the cardiac unit. He would be prescribed Zestril, vitamin D p.r.n., Tylenol for fever, oral Synthroid IV fluids, IV antibiotics, p.o., Lipitor and baby aspirin which the patient also states he takes at home. He is ordered to have a consultation with Dr. Rolf Linton from Infectious Disease. He is ordered to have a heart-healthy diet as tolerated. Nasal O2 ordered p.r.n. and he is allowed out of bed to chair as able with bathroom privileges as office clerk assistant with assistance. Greater than 75 minutes was spent in the care management, review of labs, orders, x-rays, outlining of treatment plan for this patient and discussion of his case with himself and nurse Geetha Diamond registered nurse. All questions were answered Stephanie Schwarz MD
--- NOTE | 2018-12-04 13:10 | DS ---
HISTORY OF PRESENT ILLNESS: This 73-year-old male was discharged from [facility] on the afternoon of 12/02/2018. His discharge instructions were reviewed at bedside in the presence of nurse, Ruba Young, registered nurse. Final diagnoses include E. coli urosepsis, chronic hyperlipidemia, chronic benign prostate hypertrophy, chronic hypertension, hypothyroidism, and chronic vitamin D deficiency. DISPOSITION: Home. The patient was given a note to review with his urologist, Dr. Chung MD urologist as well as he is to follow up with his PMD, Dr. Armond Oro, both within the next 48 to 72 hours. The patient was advised not to proceed with dental implant surgery until cleared by PMD and the patient was given a prescription for Keflex 500 mg p.o. t.i.d. #30 no refill and was advised to continue outpatient medications including Zocor 40 mg p.o. daily, Saw Montrose 160 mg p.o. daily, Zestril 5 mg p.o. daily, Synthroid 75 mcg p.o. daily, and vitamin D 2000 international unit p.o. daily. CLINICAL SECRETARY: Rolf Linton MD, Infectious Disease. This 73-year-old male was admitted to the [facility] with shaking chills, rigor, fever, leukocytosis and code sepsis. He was found to have E. coli urosepsis. He was given parenteral antibiotics, and once identification and sensitivity was completed, he was switched to oral Keflex with good tolerance and no further febrile episodes. At the time of discharge, temperature was 97.7, respirations 18, pulse 58, blood pressure 130/65, pulse ox 97% room air. White count 5600, hemoglobin 11.4, hematocrit 34, platelets 114,000. PT/INR was 1.07, PTT 28.2. Procalcitonin level previously 77.6 defervesced to 28.52, vitamin D level to 43.1, T4 normal 5.8. Sodium 138, K 4.2, chloride 103, bicarb 23, BUN 23, creatinine 1.1, and all LFTs were normal including bilirubin 0.8, AST 21, ALT 18, and alk phos 78. Troponin less than 0.01. Urinalysis showed 15-20 RBCs, 10 to 15 WBCs, moderate leukocyte esterase, and 30 mg/dL of protein. Given his microhematuria, anemia, I gave a note to the patient for his urologist to consider further urological workup at his discretion of the microhematuria which might include a renal ultrasound and cystoscopy with retrograde ureteral studies. I would advised this patient to follow up with Dr. Jaimes, his immigration coordinator, in a timely fashion within the next 2 weeks for further evaluation of this anemia and issue of urosepsis and to have a colonoscopy done once cleared of his urosepsis. The patient assured me he would be compliant with these recommendations and was discharged to home with full instructions outlined and prescriptions as listed above. Greater than 35 minutes was spent in the care, management, and discussion of this patient with his discharge orders and his nursing at bedside. All questions were answered. Stephanie Schwarz MD
== END 2018-12-02 16:28 | disposition home or self-care (01) | DRG 872 ==
LOC: ED 20:48 → ERH 11-29 01:06 → 2RNO 11-29 03:42
PROVIDERS: ADMIT Internal Medicine; ATTEND Internal Medicine
DX: A41.51 Sepsis due to Escherichia coli [E. coli] (principal); N39.0 Urinary tract infection, site not specified; R25.1 Tremor, unspecified; I10 Essential (primary) hypertension; E78.5 Hyperlipidemia, unspecified; E03.9 Hypothyroidism, unspecified; D72.819 Decreased white blood cell count, unspecified; D64.89 Other specified anemias; N40.0 Benign prostatic hyperplasia without lower urinary tract symptoms; G47.00 Insomnia, unspecified; E55.9 Vitamin D deficiency, unspecified; F17.200 Nicotine dependence, unspecified, uncomplicated; Z90.79 Acquired absence of other genital organ(s)